=== PATIENT | male | born 1980 | race Two or more races ===

== ENCOUNTER 2018-04-26 17:32 | Emergency (ER) | payer BC ==
[~2018-04-26] VITALS: Ht 180.3 cm; Wt 81.6 kg
--- NOTE | 2018-04-26 17:54 | NUR ---
PT REC'D TO ER C/O C[P SINCE THIS MORNING 04/01 [facility] TIGHT PRESS[facility] . AWAITING EVALUATION BY ER PROVIDER. EKG DONE
[2018-04-26] MEDS ORDERED: IV NS 0.9% 1,000 ML BAG IV ONE (18:00)
--- NOTE | 2018-04-26 18:06 | NUR ---
PT IV STARTED 20G LEFT AC LABS SENT AND IV NS AND MEDS GIVEN PER MD ORDER
--- NOTE | 2018-04-26 18:09 | NUR ---
CHEST XRAY DONE
[2018-04-26 18:14] LABS: BASOPHILS % (AUTO) 0.4 % (0.0-2.0); EOSINOPHILS % (AUTO) 0.8 % (0.0-6.0); HEMATOCRIT 43 % (39-51); HEMOGLOBIN 14.3 g/dL (13.5-17.5); LYMPHOCYTES # (AUTO) 1.3 /CMM (0.8-4.8); MEAN CORPUSCULAR HEMOGLOBIN 28 PG (26.0-33.0); MEAN CORPUSCULAR HGB CONC 33 g/dl (31.0-36.0); MEAN CORPUSCULAR VOLUME 85 fL (80-96); MONOCYTES # (AUTO) 0.5 /CMM (0.1-1.30); NEUTROPHILS # (AUTO) 4.6 /CMM (1.8-8.9); NEUTROPHILS % (AUTO) 70.8 % (43.0-81.0); PLATELET COUNT (AUTO) 246 /CMM (150-450); RDW COEFFICIENT OF VARIATION 13.1 (11.5-15.0); RED BLOOD CELL COUNT(AUTO) 5.03 MIL/uL (4.5-6.0); WHITE BLOOD COUNT (AUTO) 6.6 K/uL (4.3-11.0)
[2018-04-26 18:29] LABS: CALCIUM, SERUM 8.7 mg/dL (8.5-10.1); CARBON DIOXIDE 29 mmol/L (21-32); CHLORIDE 99 mmol/L (98-107); CREATININE 1.1 mg/dL (0.6-1.3); GLUCOSE 138 mg/dL (74-106); POTASSIUM 3.5 mmol/L (3.5-5.1); SODIUM SERUM 135 mmol/L (136-145); UREA NITROGEN, BLOOD 13 mg/dL (7-18)
[2018-04-26 18:33] LABS: INR 0.91 (0.87-1.13)
[2018-04-26 18:38] LABS: TROPONIN I < 0.017 ng/mL (0.00-0.056)
[2018-04-26 18:53] LABS: CREATINE KINASE MB 0.3 ng/mL (0-3.6)
--- NOTE | 2018-04-26 19:12 | NUR ---
RECEIVED REPORT FROM JEY OHARA. STABLE CONDITION. VSS. NAD. WILL CONTINUE TO MONITOR
[2018-04-26] MEDS ORDERED: IV NS 0.9% 1,000 ML IV STA (19:22)
[2018-04-26 19:57] LABS: BILIRUBIN,URINE Negative (NEGATIVE); BLOOD, URINE Trace-intact Ery/uL (NEGATIVE); COLOR,URINE Yellow (YELLOW); KETONES,URINE Negative (NEGATIVE); LEUKOCYTE ESTERASE ,URINE Trace (NEGATIVE); NITRITE, URINE Negative (NEGATIVE); PROTEIN,URINE Negative (NEGATIVE); UGLUCOSE Negative (NEGATIVE)
[2018-04-26 19:58] LABS: APPEARANCE,URINE SLIGHTLY HAZY (CLEAR)
[2018-04-26] MEDS ORDERED: KETOROLAC TROMETHAMINE INJ 30 MG/ML VIAL ONE (19:58)
[2018-04-26] MEDS ORDERED: KETOROLAC TROMETHAMINE INJ 30 MG/ML VIAL IV ONE (20:00)
[2018-04-26 20:04] LABS: BACTERIA,URINE Few /HPF (None Seen); SQUAMOUS EPITHELIAL CELL,UR Few /HPF (None Seen)
[2018-04-26 20:05] LABS: RBC,URINE 0-2 /HPF (0-2)
--- NOTE | 2018-04-26 20:40 | NUR ---
Patient discharged to home in stable condition. Written and verbal after care instructions given. Patient verbalizes understanding of instruction. IV removed. Catheter intact and site benign. Pressure and 4x4 applied to site. No bleeding noted. PT AMUBLATED WITH STABLE GAIT. INSTRUCTED NOT TO OPERATE OR DRIVE HEAVY MACHINERY
[2018-04-26 20:41] VITALS: BP 120/80
== END 2018-04-26 20:42 | disposition home or self-care (01) ==
LOC: ER 17:40
DX: R07.89 Other chest pain (principal); Z60.2 Problems related to living alone
CPT/HCPCS: 36415; 71045; 80048; 80305; 81001; 82550; 82553; 84484 ×2; 85025; 85378; 85730; 93005; 96374; 99285; A4606; J1885; J7030; Z7610; 81000-TC

== ENCOUNTER 2023-12-27 20:21 | Emergency (ER) | payer BC ==
[~2023-12-27] VITALS: Ht 177.8 cm; Wt 81.6 kg
[2023-12-27 22:59] VITALS: BP 111/67; TEMP 98.2; O2SAT 99
== END 2023-12-27 22:59 | disposition home or self-care (01) ==
LOC: ER 20:22
DX: H61.22 Impacted cerumen, left ear (principal); Z60.2 Problems related to living alone

== ENCOUNTER 2025-08-07 14:51 | Emergency (ER) | payer BC ==
[~2025-08-07] VITALS: Ht 177.8 cm; Wt 82.1 kg
[2025-08-07 14:55] VITALS: BP 130/67; TEMP 98.4; O2SAT 95
[2025-08-07] MEDS ORDERED: PSEU60TA94 PO (15:55)
[2025-08-07] MEDS ORDERED: GUAI5SYR PO (15:55)
[2025-08-07] MEDS ORDERED: AMOX-430 PO (15:55)
== END 2025-08-07 16:00 | disposition home or self-care (01) ==
LOC: ER 15:01
DX: J32.9 Chronic sinusitis, unspecified (principal); J06.9 Acute upper respiratory infection, unspecified; B97.89 Other viral agents as the cause of diseases classified elsewhere